=== PATIENT | male | born 1995 | race Caucasian/White ===

== ENCOUNTER 2017-03-08 08:05 | Observation (INO) | payer OTHER ==
[~2017-03-08] VITALS: Ht 177.8 cm; Wt 74.1 kg
[2017-03-08 08:11] VITALS: BP_SYST 122; BP_SYST 124; BP_DIAS 59; BP_DIAS 70; PULSE 132; RESP 16; RESP 26; TEMP 103.1; TEMP 104; O2SAT 99
[2017-03-08] MEDS ORDERED: ACETAMINOPHEN 500 MG CPLT PO ONE (08:45)
[2017-03-08] MEDS ORDERED: SODIUM CHLOR 0.9% 1000 ML INJ 1,000 ML IV ONE (08:45)
[2017-03-08 08:59] LABS: AUTOMATED NEUTROPHIL # 7.2 TH/MM3 (1.8-7.7); BASOPHIL % 0.4 % (0.0-2.0); EOSINOPHIL # 0.1 TH/MM3 (0-0.4); EOSINOPHIL % 0.9 % (0.0-4.0); HEMATOCRIT 44.7 % (39.0-51.0); HEMO FLAGS DIFF FINAL; LYMPH % 10.3 % (9.0-44.0); LYMPHOCYTE # 0.9 TH/MM3 (1.0-4.8); MEAN CELL VOLUME 88.6 FL (80.0-100.0); MEAN CORPUSCULAR HEMOGLOBIN 28.9 PG (27.0-34.0); MEAN CORPUSCULAR HGB CONC 32.7 % (32.0-36.0); MONO % 9.6 % (0.0-8.0); NEUT % 78.8 % (16.0-70.0); PLATELET COUNT 127 TH/MM3 (150-450); RED BLOOD COUNT 5.05 MIL/MM3 (4.50-5.90); RED CELL DISTRIBUTION WIDTH 12.5 % (11.6-17.2); WHITE BLOOD COUNT 9.1 TH/MM3 (4.0-11.0)
--- NOTE | 2017-03-08 09:15 | RADRPT ---
EXAM DATE/TIME: 03/08/2017 08:57 [place] COMPARISON: No previous studies available for comparison. INDICATIONS : Cough and short of breath. MEDICAL HISTORY : None. SURGICAL HISTORY : None. ENCOUNTER: Initial ACUITY: 3 days PAIN SCORE: 0/10 LOCATION: Bilateral chest FINDINGS: A single view of the chest demonstrates the lungs to be symmetrically aerated without evidence of mas s, infiltrate or effusion. The cardiomediastinal contours are unremarkable. Osseous structures are intact. CONCLUSION: Normal examination. Bridger Cruz Jr., MD on March 08, 2017 at 9:13 Board Certified Radiologist. This report was verified electronically.
[2017-03-08 09:29] LABS: ANION GAP 9 MEQ/L (5-15); AST (GOT) 19 U/L (15-37); BICARBONATE 25.4 MEQ/L (21.0-32.0); BLOOD UREA NITROGEN 13 MG/DL (7-18); CHLORIDE 103 MEQ/L (98-107); GLOMERULAR FILTRATION RATE 91 ML/MIN (>89); POTASSIUM 3.9 MEQ/L (3.5-5.1); SODIUM (NA) 137 MEQ/L (136-145)
[2017-03-08 09:30] LABS: ALT (GPT) 18 U/L (12-78)
[2017-03-08] MEDS ORDERED: SODIUM CHLOR 0.9% 1000 ML INJ 1,000 ML IV SCH (09:30)
[2017-03-08] MEDS ORDERED: KETOROLAC TROMETHAMINE 30 MG/ML (IVP) VIAL IV PUSH ONE (09:30)
[2017-03-08 09:33] LABS: ALKALINE PHOSPHATASE 74 U/L (45-117); TOTAL BILIRUBIN ADULT 0.8 MG/DL (0.2-1.0)
--- NOTE | 2017-03-08 09:38 | PD ---
HPI Chief Complaint: Fever Time Seen by Provider: 08:24 Travel History International Travel<30 days: Yes ([place] 03/02/17 ) Contact w/Intl Traveler<30days: Yes Name of Country Traveled to: [place] Traveled to known affect area: No (UNKNOWN) History of Present Illness HPI This is a 21-year-old male who presents to the emergency department having recently traveled from [facility] on the , and having been in [place] prior who says that 2 weeks ago he developed some sore throat. He seemed to be getting better but then several days ago started to develop a cough productive of yellow sputum and fevers and chills, constant, moderate severity. He denies any nausea, vomiting or diarrhea. He has had some nasal congestion. He is otherwise healthy. [facility] Past Medical History Diminished Hearing: No Medical other: Yes (G6PD DEFICIENCY) Tetanus Vaccination: > 5 Years Influenza Vaccination: No Past Surgical History Surgical History: No Previous Surgery Social History Alcohol Use: No (PT DENIES ) Tobacco Use: No (PT DENIES ) Substance Use: No (PT DENIES) Allergies-Medications (Allergen,Severity, Reaction): Coded Allergies: No Known Allergies (Unverified , 03/08/17) Reported Meds & Prescriptions Reported Meds & Active Scripts Active No Active Prescriptions or Reported Medications Review of Systems Except as stated in HPI: all other systems reviewed are Neg Physical Exam Narrative GENERAL:Well appearing, no acute distress SKIN: Focused skin assessment warm and dry. HEAD: Atraumatic. Normocephalic. EYES: Pupils equal and round. No injection or drainage. ENT: Posterior pharyngeal erythema with no exudates. NECK: Trachea midline. CARDIOVASCULAR: Regular rate and rhythm. No murmur appreciated. RESPIRATORY: Clear to auscultation. Breath sounds equal bilaterally. GASTROINTESTINAL: Abdomen soft, non-tender, nondistended. MUSCULOSKELETAL: No obvious deformities. NEUROLOGICAL: Awake and alert. No obvious cranial nerve deficits. Moving all extremities. PSYCHIATRIC: Appropriate mood and affect; insight and judgment normal. Data Data Last Documented VS Vital Signs Date Time Temp Pulse Resp B/P (MAP) Pulse Ox O2 Delivery O2 Flow Rate FiO2 03/08/17 09:42 100.1 110 18 123/60 (81) 95 Room Air Orders Orders Electrocardiogram (03/08/17 ) Complete Blood Count With Diff (03/08/17 08:33) Comprehensive Metabolic Panel (03/08/17 08:33) ^ Insert Iv (03/08/17 08:33) Influenzae A/B Antigen (03/08/17 08:33) Group A Rapid Strep Screen (03/08/17 08:33) Monoscreen (03/08/17 08:33) Sodium Chlor 0.9% 1000 Ml Inj (Ns 1000 M (03/08/17 08:45) Acetaminophen (Tylenol) (03/08/17 08:45) Chest, Single Ap (03/08/17 ) Strep Culture (Group A) (03/08/17 08:50) Ketorolac Inj (Toradol Inj) (03/08/17 09:30) Sodium Chlor 0.9% 1000 Ml Inj (Ns 1000 M (03/08/17 09:30) Sputum Culture And Gram Stain (03/08/17 09:42) Consult Infectious Disease (03/08/17 ) Blood Culture (03/08/17 09:42) Lactic Acid (03/08/17 09:42) Ceftriaxone Inj (Rocephin Inj) (03/08/17 10:00) Azithromycin (Zithromax) (03/08/17 10:00) Vital Signs (Adult) SRAVANI.Q4H (03/08/17 10:07) Activity Oob Ad Jocy (03/08/17 10:07) Intake + Output 06,14,22 (03/08/17 10:07) Notify Dr: Other (03/08/17 10:07) Resp Oxygen Ricco C Titrat 1-4 L (03/08/17 ) Sodium Chloride 0.9% Flush (Ns Flush) (03/08/17 10:15) Sodium Chloride 0.9% Flush (Ns Flush) (03/08/17 21:00) Admit Order (Ed Use Only) (03/08/17 10:07) Labs Laboratory Tests Test 03/08/17 08:40 03/08/17 09:25 White Blood Count 9.1 TH/MM3 Red Blood Count 5.05 MIL/MM3 Hemoglobin 14.6 GM/DL Hematocrit 44.7 % Mean Corpuscular Volume 88.6 FL Mean Corpuscular Hemoglobin 28.9 PG Mean Corpuscular Hemoglobin Concent 32.7 % Red Cell Distribution Width 12.5 % Platelet Count 127 TH/MM3 Mean Platelet Volume 10.7 FL Neutrophils (%) (Auto) 78.8 % Lymphocytes (%) (Auto) 10.3 % Monocytes (%) (Auto) 9.6 % Eosinophils (%) (Auto) 0.9 % Basophils (%) (Auto) 0.4 % Neutrophils # (Auto) 7.2 TH/MM3 Lymphocytes # (Auto) 0.9 TH/MM3 Monocytes # (Auto) 0.9 TH/MM3 Eosinophils # (Auto) 0.1 TH/MM3 Basophils # (Auto) 0.0 TH/MM3 CBC Comment DIFF FINAL Differential Comment Blood Urea Nitrogen 13 MG/DL Creatinine 1.03 MG/DL Random Glucose 100 MG/DL Total Protein 8.0 GM/DL Albumin 4.2 GM/DL Calcium Level 9.1 MG/DL Alkaline Phosphatase 74 U/L Aspartate Amino Transf (AST/SGOT) 19 U/L Alanine Aminotransferase (ALT/SGPT) 18 U/L Total Bilirubin 0.8 MG/DL Sodium Level 137 MEQ/L Potassium Level 3.9 MEQ/L Chloride Level 103 MEQ/L Carbon Dioxide Level 25.4 MEQ/L Anion Gap 9 MEQ/L Estimat Glomerular Filtration Rate 91 ML/MIN Monoscreen NEG Lactic Acid Level 0.8 mmol/L MDM Medical Decision Making Medical Screen Exam Complete: Yes Emergency Medical Condition: Yes Interpretation(s) Temperature 104, tachycardic, tachypneic No leukocytosis Electrolytes are reassuring Lactic acidosis 0.8 Differential Diagnosis Influenza, strep pharyngitis, mononucleosis, viral syndrome, pneumonia, MERS Narrative Course This is a 21-year-old male who presents to the emergency department with fevers , chills, and productive cough. He just recently traveled from [facility]. He was placed in a monitor and an IV was established. He has a temperature of 104 and was tachypneic and tachycardic. He is not hypoxic. Labs are reassuring. Andrews screen is negative. Chest x-rays reassuring. I spoke to Dr. Giraldo carton filler for infectious disease given the patient meets criteria for MERS screening given his recent travel from the [facility]. Pt. will be placed in observation and we will obtain appropriate screening. Physician Communication Physician Communication Discussed with Dr. Giraldo and oncall residents. Diagnosis Primary Impression: Viral syndrome Admitting Information Admitting Physician Requests: Observation Scripts No Active Prescriptions or Reported Meds Joseline Galvan MD Mar 08, 2017 09:38
[2017-03-08 09:42] VITALS: BP 123/60; PULSE 110; RESP 18; TEMP 100.1; O2SAT 95
[2017-03-08] MEDS ORDERED: AZITHROMYCIN 250 MG TAB PO ONE (10:00)
[2017-03-08] MEDS ORDERED: cefTRIAXone INJ 1,000 MG in SODIUM CHLORIDE 0.9% INJ 100 ML IV ONE (10:00)
[2017-03-08] MEDS ORDERED: SODIUM CHLORIDE 0.9% FLUSH 10 ML FLUSH IV FLUSH PRN ×2 (10:15→12:15)
[2017-03-08 10:18] VITALS: O2SAT 97
--- NOTE | 2017-03-08 10:56 | HHI.HP ---
HPI Service Family Medicine Primary Care Physician No Primary Care Physician Admission Diagnosis influenza, viral syndrome Diagnoses: International Travel<30 Days: Yes ([place] [facility] 03/02/17 ) Contact w/Intl Traveler<30days: Yes Name of Country Traveled to: [place] [facility] Known Affected Area: No (UNKNOWN) History of Present Illness Mr. Hickman is a 21 y/o M with G6PD presents to the ED with upper respiratory symptoms and subjective fevers. Patient recently traveled from the [facility] to [facility] thing to [place] and back to [facility] before returning to the [facility] on March 05. He states while traveling from [facility] to [place] he started to develop a sore throat on March 02, but it had improved before returning to [facility] on the . However when arriving to [facility] on March 05 he began to have a cough, sore throat, and subjective fevers. Over the last 3 days his symptoms have increased over time and he is started experiencing chest pain with coughing, body aches, and his cough has become productive with yellow sputum. He also endorses clear rhinorrhea over this timeframe as well. He decided to come to the emergency department when he thought that his train of thought was unclear and felt his fever was "extremely high." Otherwise he has no complaints and denies any shortness of breath, NVD, abdominal pain, or calf tenderness. (Du Dahl MD R2) Review of Systems Constitutional: COMPLAINS OF: Fever, Chills, Dizziness Eyes: DENIES: Blurred vision Ears, nose, mouth, throat: COMPLAINS OF: Throat pain, Running Nose Respiratory: COMPLAINS OF: Cough, Sputum production Cardiovascular: COMPLAINS OF: Chest pain (with coughing ) Gastrointestinal: DENIES: Abdominal pain, Diarrhea, Nausea, Vomiting Genitourinary: DENIES: Dysuria Musculoskeletal: COMPLAINS OF: Muscle aches Integumentary: DENIES: Rash Hematologic/lymphatic: DENIES: Lymphadenopathy Neurologic: COMPLAINS OF: Headache Psychiatric: DENIES: Mood changes (Du Dahl MD R2) Past Family Social History Past Medical History G6PD deficiency Past Surgical History None Reported (Du Dahl MD R2) Allergies: Coded Allergies: No Known Allergies (Unverified , 03/08/17) Family History Mother - Type of colitis Father - DM 3 brother and 6 sisters - no medical problems Social History Student at [employer] studying [employer]. Lives by himself in an apartment. Tobacco - Denies history Alcohol - Denies history Illicit - Denies history (Du Dahl MD R2) Physical Exam Vital Signs Vital Signs Date Time Temp Pulse Resp B/P (MAP) Pulse Ox O2 Delivery O2 Flow Rate FiO2 03/08/17 10:18 97 21 03/08/17 09:42 100.1 110 18 123/60 (81) 95 Room Air 03/08/17 08:19 133 17 99 Room Air 03/08/17 08:11 104.0 132 26 122/70 (87) 03/08/17 08:11 103.1 132 16 124/59 (80) 99 Physical Exam GENERAL: Well-nourished, well-developed lying in bed in no acute distress playing on the cell phone. SKIN: Warm and dry. No rash. HEENT: Atraumatic, normocephalic with EOMI. PERRLA. Oropharynx clear without erythema or exudate. No rhinorrhea. No LAD, JVD, or thyroid abnormality appreciated. CARDIOVASCULAR: Regular rate and rhythm with no MGR. 2+ pulses in all 4 extremities. RESPIRATORY: Clear to auscultation bilaterally with no CRW. No increased work of breathing. GASTROINTESTINAL: Abdomen soft, non-tender, nondistended with positive bowel sounds. No masses appreciated. MUSCULOSKELETAL: No cyanosis or edema. Strength grossly WNL. BACK: Nontender without obvious deformity. No CVA tenderness. NEURO/PSYCH: Afocal. Awake, alert, and oriented x3. Normal speech and judgment. Normal interaction with medical staff. Laboratory Laboratory Tests Test 03/08/17 08:40 03/08/17 09:25 White Blood Count 9.1 Red Blood Count 5.05 Hemoglobin 14.6 Hematocrit 44.7 Mean Corpuscular Volume 88.6 Mean Corpuscular Hemoglobin 28.9 Mean Corpuscular Hemoglobin Concent 32.7 Red Cell Distribution Width 12.5 Platelet Count 127 Mean Platelet Volume 10.7 Neutrophils (%) (Auto) 78.8 Lymphocytes (%) (Auto) 10.3 Monocytes (%) (Auto) 9.6 Eosinophils (%) (Auto) 0.9 Basophils (%) (Auto) 0.4 Neutrophils # (Auto) 7.2 Lymphocytes # (Auto) 0.9 Monocytes # (Auto) 0.9 Eosinophils # (Auto) 0.1 Basophils # (Auto) 0.0 CBC Comment DIFF FINAL Differential Comment Blood Urea Nitrogen 13 Creatinine 1.03 Random Glucose 100 Total Protein 8.0 Albumin 4.2 Calcium Level 9.1 Alkaline Phosphatase 74 Aspartate Amino Transf (AST/SGOT) 19 Alanine Aminotransferase (ALT/SGPT) 18 Total Bilirubin 0.8 Sodium Level 137 Potassium Level 3.9 Chloride Level 103 Carbon Dioxide Level 25.4 Anion Gap 9 Estimat Glomerular Filtration Rate 91 Monoscreen NEG Lactic Acid Level 0.8 Date/Time Source Procedure Growth Status 03/08/17 09:25 Blood Peripheral Aerobic Blood Culture Pending Received 03/08/17 09:25 Blood Peripheral Anaerobic Blood Culture Pending Received 03/08/17 09:15 Nasal Washing Influenza Types A,B Antigen (CORTNEY) - Final Positive For Flu A Antigen Complete (Du Dahl MD R2) Result Diagram: 03/08/17 0840 03/08/17 0840 Caprini VTE Risk Assessment Caprini VTE Risk Assessment: Mod/High Risk (score >= 2) Caprini Risk Assessment Model Point Value = 1 Point Value = 2 Point Value = 3 Point Value = 5 Age 41-60 Minor surgery BMI > 25 kg/m2 Swollen legs Varicose veins or History of unexplained or recurrent spontaneous Oral contraceptives or hormone replacement Sepsis (< 1 month) Serious lung disease, including pneumonia (< 1 month) Abnormal pulmonary function Acute myocardial infarction Congestive heart failure (< 1 month) History of inflammatory bowel disease Medical patient at bed rest Age 61-74 Arthroscopic surgery Major open surgery (> 45 min) Laparoscopic surgery (> 45 min) Malignancy Confined to bed (> 72 hours) Immobilizing plaster cast Central venous access Age >= 75 History of VTE Family history of VTE Factor V Leiden Prothrombin [id number] Lupus anticoagulant Anticardiolipin antibodies Elevated serum homocysteine Heparin-induced thrombocytopenia Other congenital or acquired thrombophilia Stroke (< 1 month) Elective arthroplasty Hip, pelvis, or leg fracture Acute spinal cord injury (< 1 month) Prophylaxis Regimen Total Risk Factor Score Risk Level Prophylaxis Regimen 0-1 Low Early ambulation 2 Moderate Order ONE of the following: *Sequential Compression Device (SCD) *Heparin 5000 units SQ BID 3-4 Higher Order ONE of the following medications: *Heparin 5000 units SQ TID *Enoxaparin/Lovenox 40 mg SQ daily (WT < 150 kg, CrCl > 30 mL/min) *Enoxaparin/Lovenox 30 mg SQ daily (WT < 150 kg, CrCl > 10-29 mL/min) *Enoxaparin/Lovenox 30 mg SQ BID (WT < 150 kg, CrCl > 30 mL/min) AND/OR *Sequential Compression Device (SCD) 5 or more Highest Order ONE of the following medications: *Heparin 5000 units SQ TID (Preferred with Epidurals) *Enoxaparin/Lovenox 40 mg SQ daily (WT < 150 kg, CrCl > 30 mL/min) *Enoxaparin/Lovenox 30 mg SQ daily (WT < 150 kg, CrCl > 10-29 mL/min) *Enoxaparin/Lovenox 30 mg SQ BID (WT < 150 kg, CrCl > 30 mL/min) AND *Sequential Compression Device (SCD) (Du Dahl MD R2) Assessment and Plan Assessment and Plan Mr. Hickman is a 21 y/o M with G6PD presents to the ED with upper respiratory symptoms and subjective fevers likely due to viral illness. Code Status Full Code Discussed Condition With Dr. Galvan, ER physician Dr. Godinez (Du Dahl MD R2) Attending Attestation Patient seen and examined. Case reviewed and discussed with the resident team. Agree with plan of care as discussed with me and documented in the resident note. evaluated in the ED. acutely ill but feels better with his headache. spoke to ANDREW Patel and he should be able to continue his recovery at home (Wendy Meek MD) Problem List: (1) Viral syndrome ICD Codes: B34.9 - Viral infection, unspecified Status: Acute Plan: Patient presenting with fevers, chills, productive cough, and sore throat consistent with likely viral syndrome. Patient does have positive history of foreign travel within the last week. ER staff concerned for possible MERS virus and infectious disease was consulted who recommended admission for observation and further appropriate screening. -Chest x-ray: Normal examination -CBC: WBC 9.1 with 78.8% neutrophils -Lactic acid: 0.8 -Blood cultures 2: Pending -Rapid strep: Negative -Monoscreen: Negative -Influenza: Positive for flu type A antigen -[facility] disease consulted, appreciate recommendations Medications: -Patient received ceftriaxone, azithromycin, and Toradol in ER -Normal saline at 114 mL/h -Tamiflu 75 mg twice a day for 5 days -Tylenol when necessary for fever (2) G6PD deficiency ICD Codes: D55.0 - Anemia due to [id number] dehydrogenase [G6PD] deficiency Plan: Patient with history of G6PD deficiency -Regular diet with avoiding carl beans and lagoons -Avoid medications with menthol (3) Nutrition, metabolism, and development symptoms ICD Codes: R63.8 - Other symptoms and signs concerning food and fluid intake Plan: Diet: Regular as tolerated Electrolytes: Within normal limits, continue to monitor Fluids: Normal saline at 140 mL/h Prophylaxis: DuoNeb's when necessary for shortness of breath, hydroxyzine when necessary for insomnia, loperamide when necessary for diarrhea, Bambi-Colace when necessary for constipation, Tylenol when necessary for fever, Zofran when necessary for nausea or vomiting (4) No contraindication to deep vein thrombosis (DVT) prophylaxis ICD Codes: Z78.9 - Other specified health status Plan: Heparin 5000 units every 8 hours TONNY/SCDs (Du Dahl MD R2) Physician Certification 2 Midnight Certification Type: Admission for Inpatient Services Order for Inpatient Services The services are ordered in accordance with Medicare regulations or non- Medicare payer requirements, as applicable. In the case of services not specified as inpatient-only, they are appropriately provided as inpatient services in accordance with the 2-midnight benchmark. Estimated LOS (days): 3 3 days is the estimated time the patient will need to remain in the hospital, assuming treatment plan goals are met and no additional complications. Post-Hospital Plan: Home (Du Dahl MD R2) Du Dahl MD R2 Mar 08, 2017 10:56 Wendy Meek MD Mar 09, 2017 13:03
[2017-03-08] MEDS ORDERED: ONDANSETRON HCL 4 MG/2 ML VIAL IVP PRN (12:15)
[2017-03-08] MEDS ORDERED: DOCUSATE SODIUM 50 MG/SENNA 8.6 MG TAB PO PRN (12:15)
[2017-03-08] MEDS ORDERED: NALOXONE HCL 0.4 MG/ML AMP IV PRN (12:15)
[2017-03-08 12:39] VITALS: BP 117/59; PULSE 102; RESP 22; TEMP 99.4; O2SAT 98
[2017-03-08] MEDS: OSELTAMIVIR PHOSPHATE 75 MG CAP PO SCH (12:59)
[2017-03-08] MEDS: SODIUM CHLOR 0.9% 1000 ML INJ 1,000 ML IV SCH (12:59)
[2017-03-08] MEDS: HEPARIN SODIUM - SQ 10,000 UNITS/ML VIAL SQ SCH ×2 (12:59→19:58)
[2017-03-08] MEDS: ACETAMINOPHEN 325 MG TAB PO PRN (14:43)
[2017-03-08 15:23] VITALS: BP 120/58; PULSE 97; RESP 16; TEMP 100.2; O2SAT 100
[2017-03-08] MEDS ORDERED: RESP: ALBUTEROL 2.5 MG/IPRATROPIUM 0.5 MG NEB (PRN) NEB (16:15)
[2017-03-08] MEDS ORDERED: LOPERAMIDE HCL 2 MG CAP PO PRN (16:15)
--- NOTE | 2017-03-08 16:22 | MB ---
cc: KIERRA MCGHEE MD DATE OF CONSULTATION: 03/08/[address] Akins. REASON FOR CONSULTATION Possible MERS virus infection. HISTORY OF PRESENT ILLNESS This is a 21-year-old white male who is a student at [employer]. The patient presented to the emergency department this morning with cough, high fever and sore throat. The patient just returned to begin the new semester at college three days ago. He arrived in the [facility] from [facility] on March 04 and prior to that he was in [place] for 2 weeks. The patient notes that his sister in [place] had "flu". He visited his grandfather and uncle in [facility] for two days prior to leaving for the [facility]. After he arrived in the [facility] he continued to have cough and he was having some shakes and high fever. He notes that he had occasional productive yellow sputum upon coughing. He also noted developing a headache yesterday. He states that he currently has a headache with a pain level of 8/10 currently. He has no nasal drainage and denies nausea or vomiting. He also denies joints and muscle aches and pains, although he does note that he had some pain behind the knees and also in the left hip. The patient states that he was coughing while he was in class yesterday at the [employer]. He denies being in any crowded environment in [facility]. Influenza testing is positive from a nasal washing. The test is positive for influenza A. Streptococcal throat screen is negative. White blood cell count is normal. The patient had temperature of 104 degrees earlier today. The patient was just evaluated by physical therapy and he was able to stand up and do some movements including standing on one leg without any balance problems. He told me that yesterday he was having a little wobbly movement when he would walk upon awakening. He has had no dysuria or back pain or neck stiffness. PAST MEDICAL HISTORY Negative except for G6PD deficiency. ALLERGIES NO KNOWN DRUG ALLERGIES. MEDICATIONS 1. Tamiflu which was just started this afternoon. Prior antibiotics included: 1. Ceftriaxone given early today. 2. Zithromax given early today. These have been discontinued. SOCIAL HISTORY No tobacco, no alcohol, no illicit drugs. The patient is a student at [employer]. FAMILY HISTORY Family history significant for colitis in his mom and diabetes mellitus in his father. REVIEW OF SYSTEMS CONSTITUTIONAL: The patient with fever and chills. HEENT: Significant for headache. No visual blurring or difficulty with vision. No nasal discharge. No soreness of the throat or difficulty swallowing. CARDIOVASCULAR: No palpitations or chest pain. RESPIRATORY: Positive for cough. Denies shortness of breath. GASTROINTESTINAL: Denies nausea or vomiting, abdominal pain or diarrhea. GENITOURINARY: Denies urgency, frequency or dysuria. HEMATOPOIETIC: Denies easy bruising or bleeding. MUSCULOSKELETAL: Admits to mild pain in the left hip and behind the left and right knees. INTEGUMENTARY: Denies skin rash or itching. NEUROLOGIC: Significant for unsteady gait. PSYCHIATRIC: Denies depression or mood changes. PHYSICAL EXAMINATION GENERAL: This is a pleasant, well-developed male who is in no acute distress. He is awake and alert and oriented. VITAL SIGNS: Include temperature 99.4, BP 117/59, respirations 22, heart rate 101. HEENT: Head is atraumatic. Extraocular movements grossly intact, pupils reactive to light. No icterus. No conjunctival erythema. Oropharynx moist mucosa without lesions. NECK: Supple without adenopathy. LUNGS: Clear breath sounds with slight rhonchi at the bases. HEART: Regular, S1 and S2 without murmurs, rubs or gallops. ABDOMEN: Bowel sounds present, soft, nontender. No hepatosplenomegaly. RECTAL: Not performed. EXTREMITIES: No clubbing or cyanosis or edema. SKIN: No rash. NEURO: No gross focal findings. PSYCHIATRIC: The patient is calm and cooperative. LABORATORY DATA WBC 9.1, platelet count 127, hemoglobin 14.6, 78% neutrophils, creatinine 1.03, BUN 13, sodium 137, AST 19, ALT 18. IMPRESSION Infection due to influenza A. The patient with symptoms including headache, fever, chills related to influenza. RECOMMENDATIONS 1. Continue the Tamiflu for 5 days duration. 2. I suggest that he be monitored overnight because of the headache and if the headache improves, we can discharge him tomorrow. Of critical importance is that we make sure that he is made aware that he needs to wear a mask for the next 7 days since he is liable to be shedding virus over that period of time. He needs to wear a N95 mask or be quarantined to his apartment. He does have an apartment where he lives by himself. I have informed him that he should contact his professors to try to get his schoolwork delivered to him by computer or give it to him in somewhat a way so that he does not attend class during the 7 days. I do not think that further workup of the headache is warranted at this time but it can be observed and if it worsens we may have to keep him in the hospital for a longer period of time. Thank you for this consultation. The patient's progress will be monitored along with you and further recommendations will be given upon followup if necessary. Kierra Mcghee MD FD/JEREMI /2:37 PM /3:39 PM
[2017-03-08 19:26] VITALS: BP 127/73; PULSE 72; RESP 18; TEMP 99.6; O2SAT 97
[2017-03-08] MEDS ORDERED: SODIUM CHLORIDE 0.9% FLUSH 10 ML FLUSH IV FLUSH SCH ×2 (21:00)
[2017-03-09] MEDS: SODIUM CHLOR 0.9% 1000 ML INJ 1,000 ML IV SCH ×3 (00:20→08:51)
[2017-03-09] MEDS: OSELTAMIVIR PHOSPHATE 75 MG CAP PO SCH (00:24)
[2017-03-09 00:28] VITALS: BP 122/65; PULSE 79; RESP 18; TEMP 99.2; O2SAT 98
[2017-03-09 01:19] VITALS: O2SAT 98
[2017-03-09 04:24] VITALS: BP 125/65; PULSE 76; RESP 18; TEMP 98.1; O2SAT 98
[2017-03-09] MEDS: HEPARIN SODIUM - SQ 10,000 UNITS/ML VIAL SQ SCH (05:00)
[2017-03-09] MEDS ORDERED: ACET1TAB86 PO (06:32)
[2017-03-09] MEDS ORDERED: OSEL75 PO ×2 (06:32→09:26)
--- NOTE | 2017-03-09 06:33 | HHI.DCPOC ---
Discharge Care Plan Diagnosis: (1) Viral syndrome Goals to Promote Your Health * To prevent worsening of your condition and complications * To maintain your health at the optimal level Directions to Meet Your Goals Take your medications as prescribed Follow your dietary instruction Follow activity as directed Keep your appointments as scheduled Take your immunizations and boosters as scheduled If your symptoms worsen call your PCP, if no PCP go to Urgent Care Center or Emergency Room Smoking is Dangerous to Your Health. Avoid second hand smoke Call the 24-hour hour crisis hotline for domestic abuse at Du Dahl MD R2 Mar 09, 2017 06:33
[2017-03-09 07:49] VITALS: O2SAT 97
[2017-03-09 08:10] VITALS: BP 126/63; PULSE 93; RESP 16; TEMP 101; O2SAT 96
[2017-03-09 08:24] LABS: AUTOMATED NEUTROPHIL # 4.8 TH/MM3 (1.8-7.7); BASOPHIL % 0.5 % (0.0-2.0); HEMATOCRIT 42.4 % (39.0-51.0); HEMO FLAGS DIFF FINAL; LYMPHOCYTE # 2.4 TH/MM3 (1.0-4.8); MEAN CELL VOLUME 89.2 FL (80.0-100.0); MEAN CORPUSCULAR HEMOGLOBIN 29.1 PG (27.0-34.0); MEAN CORPUSCULAR HGB CONC 32.6 % (32.0-36.0); MONO % 11.1 % (0.0-8.0); NEUT % 58.4 % (16.0-70.0); PLATELET COUNT 107 TH/MM3 (150-450); RED BLOOD COUNT 4.76 MIL/MM3 (4.50-5.90); RED CELL DISTRIBUTION WIDTH 12.8 % (11.6-17.2); WHITE BLOOD COUNT 8.1 TH/MM3 (4.0-11.0)
[2017-03-09 08:50] LABS: ANION GAP 12 MEQ/L (5-15); AST (GOT) 28 U/L (15-37); BICARBONATE 21.8 MEQ/L (21.0-32.0); BLOOD UREA NITROGEN 10 MG/DL (7-18); CHLORIDE 103 MEQ/L (98-107); GLOMERULAR FILTRATION RATE 89 ML/MIN (>89); POTASSIUM 3.7 MEQ/L (3.5-5.1); SODIUM (NA) 137 MEQ/L (136-145)
[2017-03-09] MEDS: ACETAMINOPHEN 325 MG TAB PO PRN (08:50)
[2017-03-09 08:51] LABS: ALT (GPT) 19 U/L (12-78)
[2017-03-09 08:54] LABS: ALKALINE PHOSPHATASE 61 U/L (45-117)
--- NOTE | 2017-03-09 09:25 | HHI.HP ---
[facility] Service Family Medicine Primary Care Physician No Primary Care Physician Admission Diagnosis influenza, viral syndrome Diagnoses: (1) Influenza A Diagnosis: Principal (2) Viral syndrome Diagnosis: Principal (3) G6PD deficiency Diagnosis: Principal (4) Nutrition, metabolism, and development symptoms Diagnosis: Principal (5) No contraindication to deep vein thrombosis (DVT) prophylaxis Diagnosis: Principal International Travel<30 Days: Yes ([facility]) Contact w/Intl Traveler<30days: Yes Name of Country Traveled to: [facility] Known Affected Area: Yes History of Present Illness Mr. Hickman is a 21 y/o M with G6PD who presented to the ED with upper respiratory symptoms and subjective fevers. Patient recently traveled from the [facility] to [facility] and to [place] and back to [facility] before returning to the [facility] on March 05. He states while traveling from [facility] to [place] he started to develop a sore throat on March 02, but it had improved before returning to [facility] on the . However when arriving to [facility] on March 05 he began to have a cough, sore throat, and subjective fevers. Over the last 3 days his symptoms have increased over time and he is started experiencing chest pain with coughing, body aches, and his cough has become productive with yellow sputum. He also endorses clear rhinorrhea over this timeframe as well. He decided to come to the emergency department when he believed that his train of thought was unclear and felt his fever was " extremely high." Otherwise he has no complaints and denies any shortness of breath, NVD, abdominal pain, or calf tenderness. He had a fever of 104 at it's highest. he was admitted with a possibility of MERS [place] and had respiratory sxs however, he has influenza a. he is still symptomatic but feels better than yesterday. Per ID, he needs to remain on isolation for 7 days. he was given a note for his Professors as he is at [employer] and one professor expected him to start back to school right away and evidently did not think the flu was a valid excuse so he was given a note stating he needed isolation. He had a headache and other sxs yesterday but is improved overall today. Review of Systems Other Constitutional: COMPLAINS OF: Fever, Chills, Dizziness Eyes: DENIES: Blurred vision Ears, nose, mouth, throat: COMPLAINS OF: Throat pain, Running Nose Respiratory: COMPLAINS OF: Cough, Sputum production Cardiovascular: COMPLAINS OF: Chest pain (with coughing ) Gastrointestinal: DENIES: Abdominal pain, Diarrhea, Nausea, Vomiting Genitourinary: DENIES: Dysuria Musculoskeletal: COMPLAINS OF: Muscle aches Integumentary: DENIES: Rash Hematologic/lymphatic: DENIES: Lymphadenopathy Neurologic: COMPLAINS OF: Headache Psychiatric: DENIES: Mood changes Past Family Social History Past Medical History G6PD deficiency Past Surgical History None Reported Allergies: Coded Allergies: No Known Allergies (Unverified , 03/08/17) Family History Mother - Type of colitis Father - DM 3 brother and 6 sisters - no medical problems Social History 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 Lives by himself in an apartment. Tobacco - Denies history Alcohol - Denies history Illicit - Denies history Physical Exam Vital Signs Vital Signs Date Time Temp Pulse Resp B/P (MAP) Pulse Ox O2 Delivery O2 Flow Rate FiO2 03/09/17 08:10 101.0 93 16 126/63 (84) 96 03/09/17 07:49 97 21 03/09/17 04:24 98.1 76 18 125/65 (85) 98 03/09/17 01:19 98 21 03/09/17 00:28 99.2 79 18 122/65 (84) 98 03/08/17 19:26 99.6 72 18 127/73 (91) 97 03/08/17 15:43 20 03/08/17 15:23 100.2 97 16 120/58 (78) 100 03/08/17 12:39 99.4 102 22 117/59 (78) 98 03/08/17 11:01 03/08/17 10:18 97 21 03/08/17 09:42 100.1 110 18 123/60 (81) 95 Room Air Physical Exam GENERAL: Well-nourished, well-developed lying in bed in no acute distress playing on the cell phone. appears acutely ill but in very good general health SKIN: Warm and dry. No rash. HEENT: Atraumatic, normocephalic with EOMI. PERRLA. Oropharynx clear without erythema or exudate. No rhinorrhea. No LAD, JVD, or thyroid abnormality appreciated. CARDIOVASCULAR: Regular rate and rhythm with no MGR. 2+ pulses in all 4 extremities. RESPIRATORY: Clear to auscultation bilaterally with no CRW. No increased work of breathing. GASTROINTESTINAL: Abdomen soft, non-tender, nondistended with positive bowel sounds. No masses appreciated. MUSCULOSKELETAL: No cyanosis or edema. Strength grossly WNL. BACK: Nontender without obvious deformity. No CVA tenderness. NEURO/PSYCH: Afocal. Awake, alert, and oriented x3. Normal speech and judgment. Normal interaction with medical staff. Laboratory Laboratory Tests Test 03/09/17 06:21 White Blood Count 8.1 Red Blood Count 4.76 Hemoglobin 13.8 Hematocrit 42.4 Mean Corpuscular Volume 89.2 Mean Corpuscular Hemoglobin 29.1 Mean Corpuscular Hemoglobin Concent 32.6 Red Cell Distribution Width 12.8 Platelet Count 107 Mean Platelet Volume 12.2 Neutrophils (%) (Auto) 58.4 Lymphocytes (%) (Auto) 30.0 Monocytes (%) (Auto) 11.1 Eosinophils (%) (Auto) 0.0 Basophils (%) (Auto) 0.5 Neutrophils # (Auto) 4.8 Lymphocytes # (Auto) 2.4 Monocytes # (Auto) 0.9 Eosinophils # (Auto) 0.0 Basophils # (Auto) 0.0 CBC Comment DIFF FINAL Differential Comment Blood Urea Nitrogen 10 Creatinine 1.05 Random Glucose 90 Total Protein 7.1 Albumin 3.7 Calcium Level 8.7 Alkaline Phosphatase 61 Aspartate Amino Transf (AST/SGOT) 28 Alanine Aminotransferase (ALT/SGPT) 19 Total Bilirubin 1.0 Sodium Level 137 Potassium Level 3.7 Chloride Level 103 Carbon Dioxide Level 21.8 Anion Gap 12 Estimat Glomerular Filtration Rate 89 Date/Time Source Procedure Growth Status 03/08/17 09:25 Blood Peripheral Aerobic Blood Culture Pending Received 03/08/17 09:25 Blood Peripheral Anaerobic Blood Culture Pending Received 03/08/17 09:15 Nasal Washing Influenza Types A,B Antigen (CORTNEY) - Final Positive For Flu A Antigen Complete Result Diagram: 03/09/1762003/09/17620 Septic Shock Reassessment Heart: Regular rate and rhythm Lungs: Clear Skin: Warm, Dry Capillary Refill: Brisk Caprini VTE Risk Assessment Caprini VTE Risk Assessment: Mod/High Risk (score >= 2) Caprini Risk Assessment Model Point Value = 1 Point Value = 2 Point Value = 3 Point Value = 5 Age 41-60 Minor surgery BMI > 25 kg/m2 Swollen legs Varicose veins or History of unexplained or recurrent spontaneous Oral contraceptives or hormone replacement Sepsis (< 1 month) Serious lung disease, including pneumonia (< 1 month) Abnormal pulmonary function Acute myocardial infarction Congestive heart failure (< 1 month) History of inflammatory bowel disease Medical patient at bed rest Age 61-74 Arthroscopic surgery Major open surgery (> 45 min) Laparoscopic surgery (> 45 min) Malignancy Confined to bed (> 72 hours) Immobilizing plaster cast Central venous access Age >= 75 History of VTE Family history of VTE Factor V Leiden Prothrombin [id number] Lupus anticoagulant Anticardiolipin antibodies Elevated serum homocysteine Heparin-induced thrombocytopenia Other congenital or acquired thrombophilia Stroke (< 1 month) Elective arthroplasty Hip, pelvis, or leg fracture Acute spinal cord injury (< 1 month) Prophylaxis Regimen Total Risk Factor Score Risk Level Prophylaxis Regimen 0-1 Low Early ambulation 2 Moderate Order ONE of the following: *Sequential Compression Device (SCD) *Heparin 5000 units SQ BID 3-4 Higher Order ONE of the following medications: *Heparin 5000 units SQ TID *Enoxaparin/Lovenox 40 mg SQ daily (WT < 150 kg, CrCl > 30 mL/min) *Enoxaparin/Lovenox 30 mg SQ daily (WT < 150 kg, CrCl > 10-29 mL/min) *Enoxaparin/Lovenox 30 mg SQ BID (WT < 150 kg, CrCl > 30 mL/min) AND/OR *Sequential Compression Device (SCD) 5 or more Highest Order ONE of the following medications: *Heparin 5000 units SQ TID (Preferred with Epidurals) *Enoxaparin/Lovenox 40 mg SQ daily (WT < 150 kg, CrCl > 30 mL/min) *Enoxaparin/Lovenox 30 mg SQ daily (WT < 150 kg, CrCl > 10-29 mL/min) *Enoxaparin/Lovenox 30 mg SQ BID (WT < 150 kg, CrCl > 30 mL/min) AND *Sequential Compression Device (SCD) Assessment and Plan Assessment and Plan Mr. Hickman is a 21 y/o M with G6PD presenting to the ED with upper respiratory symptoms and subjective fevers likely due to viral illness. was found to have the flu. this is out of sync with our regular flu season in [place] so he needs to be on isolation as he could infect others and out flu shots have not been given yet Problem List: (1) Influenza A ICD Codes: J10.1 - Influenza due to other identified influenza virus with other respiratory manifestations Status: Acute Plan: Patient presenting with fevers, chills, productive cough, and sore throat consistent with likely flu. Patient does have positive history of foreign travel within the last week. ER staff concerned for possible MERS virus and infectious disease was consulted who recommended admission for observation and further appropriate screening overnight but is fine with D/C today as he is better and will continue with his tamiflu. -Chest x-ray: Normal examination -CBC: WBC 9.1 with 78.8% neutrophils -Lactic acid: 0.8 -Blood cultures 2: Pending -Rapid strep: Negative -Monoscreen: Negative -Influenza: Positive for flu type A antigen -[facility] disease consulted, appreciate recommendations Medications: -Patient received ceftriaxone, azithromycin, and Toradol in ER -Normal saline at 114 mL/h -Tamiflu 75 mg twice a day for 5 days -Tylenol when necessary for fever with the flu abx are not needed (2) G6PD deficiency ICD Codes: D55.0 - Anemia due to ubaqqaj-[id number] dehydrogenase [G6PD] deficiency Plan: Patient with history of G6PD deficiency -Regular diet with avoiding carl beans and legumes -Avoid medications with menthol (3) Nutrition, metabolism, and development symptoms ICD Codes: R63.8 - Other symptoms and signs concerning food and fluid intake Plan: Diet: Regular as tolerated Electrolytes: Within normal limits, continue to monitor Fluids: Normal saline at 140 mL/h overnight Prophylaxis: DuoNeb's when necessary for shortness of breath, hydroxyzine when necessary for insomnia, loperamide when necessary for diarrhea, Bambi-Colace when necessary for constipation, Tylenol when necessary for fever, Zofran when necessary for nausea or vomiting (4) No contraindication to deep vein thrombosis (DVT) prophylaxis ICD Codes: Z78.9 - Other specified health status Plan: Heparin 5000 units every 8 hours TONNY/SCDs Physician Certification 2 Midnight Certification Type: Admission for Inpatient Services Order for Inpatient Services The services are ordered in accordance with Medicare regulations or non- Medicare payer requirements, as applicable. In the case of services not specified as inpatient-only, they are appropriately provided as inpatient services in accordance with the 2-midnight benchmark. Estimated LOS (days): 3 3 days is the estimated time the patient will need to remain in the hospital, assuming treatment plan goals are met and no additional complications. Post-Hospital Plan: Home Notes: he is stable and in good general health so he can go home per ID despite having some fevers as that is normal for days with the flu. He lives alone but will have friends bring him food and look in on him Wendy Meek MD Mar 09, 2017 09:25
[2017-03-09 11:17] VITALS: BP 116/59; PULSE 55; RESP 16; TEMP 98.4; O2SAT 99
== END 2017-03-09 14:44 | disposition home or self-care (01) ==
LOC: NEPC 08:05 → NEDA 10:10 → INTOOBSV 10:51 → OBSVTOIN 10:51 → NEPHCDU 11:06
PROVIDERS: ADMIT Family Medicine; ATTEND Family Medicine
DX: J10.1 Influenza due to other identified influenza virus with other respiratory manifestations (principal); D55.0 Anemia due to glucose-6-phosphate dehydrogenase [G6PD] deficiency; R63.8 Other symptoms and signs concerning food and fluid intake; R00.0 Tachycardia, unspecified; G47.00 Insomnia, unspecified; Z78.9 Other specified health status
CPT/HCPCS: 71010; 80053; 83605; 85025; 86308; 87040; 87081; 87804; 87880; 94150; 96361; 96372; 96374; 97161; 99285; G0378; J0696; J1644; J1885; J7030

== ENCOUNTER 2017-12-11 15:14 | Emergency (ER) | payer OTHER ==
[~2017-12-11] VITALS: Ht 177.8 cm; Wt 70.0 kg
[~2017-12-11 15:14] MED LIST: ACET325T15 PO; OSEL75 PO
[2017-12-11 15:57] VITALS: BP 149/66; PULSE 77; RESP 18; TEMP 98.4; O2SAT 98
--- NOTE | 2017-12-11 17:26 | PD ---
HPI Chief Complaint: Abdominal Pain Time Seen by Provider: 17:06 Travel History International Travel<30 days: No Contact w/Intl Traveler<30days: No Traveled to known affect area: No History of Present Illness HPI 22yo M with no PMH presents to the ED with c/o abdominal pressure intermittently for 2 months. Said it changes in location. Feel that there is a mass in his mid epigastric area. Said he had fever yesterday but temp was 99F so did not have fever. Denies any nausea, vomiting, chest pain, sob, diarrhea, dysuria, hematuria, testicular pain. PFSH Past Medical History Blood Disorders: No Cancer: No Cardiovascular Problems: No Diabetes: No Diminished Hearing: No Endocrine: No Genitourinary: No Immune Disorder: No Musculoskeletal: Yes (back pain) Neurologic: No Psychiatric: No Reproductive: No Respiratory: No Social History Alcohol Use: No (PT DENIES ) Tobacco Use: No (PT DENIES ) Substance Use: No (PT DENIES) Allergies-Medications (Allergen,Severity, Reaction): Coded Allergies: No Known Allergies (Unverified Adverse Reaction, Unknown, 12/11/17) Reported Meds & Prescriptions Reported Meds & Active Scripts Active No Active Prescriptions or Reported Medications Review of Systems Except as stated in HPI: all other systems reviewed are Neg Physical Exam Narrative GENERAL: 22yo M not in distress. SKIN: Focused skin assessment warm/dry. HEAD: Atraumatic. Normocephalic. EYES: Pupils equal and round. No scleral icterus. No injection or drainage. ENT: No nasal bleeding or discharge. Mucous membranes pink and moist. NECK: Trachea midline. No JVD. CARDIOVASCULAR: Regular rate and rhythm. No murmur appreciated. RESPIRATORY: No accessory muscle use. Clear to auscultation. Breath sounds equal bilaterally. GASTROINTESTINAL: Abdomen soft, +BS. Nontender to palpation. Retraction of upper abdomen upon standing. Feel that pt is voluntarily doing it. MUSCULOSKELETAL: No obvious deformities. No clubbing. No cyanosis. No edema. NEUROLOGICAL: Awake and alert. No obvious cranial nerve deficits. Motor grossly within normal limits. Normal speech. PSYCHIATRIC: Appropriate mood and affect; insight and judgment normal. Data Data Last Documented VS Vital Signs Date Time Temp Pulse Resp B/P (MAP) Pulse Ox O2 Delivery O2 Flow Rate FiO2 12/11/17 15:57 98.4 77 18 149/66 (93) 98 Orders Orders Complete Blood Count With Diff (12/11/17 17:22) Comprehensive Metabolic Panel (12/11/17 17:22) Lipase (12/11/17 17:26) Ct Abd/Pel W/O Iv Contrast (12/11/17 ) Ed Discharge Order (12/11/17 20:21) Labs Laboratory Tests Test 12/11/17 17:53 12/11/17 19:03 Blood Urea Nitrogen 8 MG/DL Creatinine 1.05 MG/DL Random Glucose 85 MG/DL Total Protein 7.7 GM/DL Albumin 4.0 GM/DL Calcium Level 9.1 MG/DL Alkaline Phosphatase 70 U/L Aspartate Amino Transf (AST/SGOT) 43 U/L Alanine Aminotransferase (ALT/SGPT) 26 U/L Total Bilirubin 1.0 MG/DL Sodium Level 138 MEQ/L Potassium Level 5.2 MEQ/L Chloride Level 105 MEQ/L Carbon Dioxide Level 26.0 MEQ/L Anion Gap 7 MEQ/L Estimat Glomerular Filtration Rate 88 ML/MIN White Blood Count 7.8 TH/MM3 Red Blood Count 5.00 MIL/MM3 Hemoglobin 14.7 GM/DL Hematocrit 44.0 % Mean Corpuscular Volume 88.0 FL Mean Corpuscular Hemoglobin 29.5 PG Mean Corpuscular Hemoglobin Concent 33.5 % Red Cell Distribution Width 12.3 % Platelet Count 133 TH/MM3 Mean Platelet Volume 11.1 FL Neutrophils (%) (Auto) 70.3 % Lymphocytes (%) (Auto) 16.5 % Monocytes (%) (Auto) 10.6 % Eosinophils (%) (Auto) 2.3 % Basophils (%) (Auto) 0.3 % Neutrophils # (Auto) 5.5 TH/MM3 Lymphocytes # (Auto) 1.3 TH/MM3 Monocytes # (Auto) 0.8 TH/MM3 Eosinophils # (Auto) 0.2 TH/MM3 Basophils # (Auto) 0.0 TH/MM3 CBC Comment DIFF FINAL Differential Comment MDM Medical Decision Making Medical Screen Exam Complete: Yes Emergency Medical Condition: Yes Differential Diagnosis Anxiety vs. gastritis peptic ulcer disease vs. abdominal mass Narrative Course 22yo M with multiple vague abdominal complaints. Pt said this is not normal for him and feels a mass in his abdomen. I do not feel any mass on exam. Labs reviewed, no leukocytosis. H/H normal. Mild thrombocytopenia which is at baseline. K 5.2. AST mildly elevated at 43. CT a/p showed no acute findings on CT a/p. Instructed pt to follow up with GI if needed. Diagnosis Primary Impression: Abdominal pain Qualified Codes: R10.9 - Unspecified abdominal pain Referrals: Angelo Barrett MD as needed Patient Instructions: General Instructions Departure Forms: Tests/Procedures Additional Instructions: Please follow up with [facility] helicopter pilot as needed. Return to the ED if symptoms worsen. Med/Other Pt SpecificInfo: No Change to Meds Scripts No Active Prescriptions or Reported Meds Disposition: 01 DISCHARGE HOME Condition: Stable Raquel Armasanam DOBBINS Dec 11, 2017 17:26
[2017-12-11 18:50] LABS: ALKALINE PHOSPHATASE 70 U/L (45-117); ALT (GPT) 26 U/L (12-78); AST (GOT) 43 U/L (15-37); BLOOD UREA NITROGEN 8 MG/DL (7-18); CALCIUM 9.1 MG/DL (8.5-10.1); CHLORIDE 105 MEQ/L (98-107); CREATININE 1.05 MG/DL (0.60-1.30); GLOMERULAR FILTRATION RATE 88 ML/MIN (>89); GLUCOSE,RANDOM 85 MG/DL (74-106); SODIUM (NA) 138 MEQ/L (136-145); TOTAL PROTEIN 7.7 GM/DL (6.4-8.2)
[2017-12-11 19:33] LABS: AUTOMATED NEUTROPHIL # 5.5 TH/MM3 (1.8-7.7); BASOPHIL % 0.3 % (0.0-2.0); EOSINOPHIL # 0.2 TH/MM3 (0-0.4); EOSINOPHIL % 2.3 % (0.0-4.0); HEMOGLOBIN 14.7 GM/DL (13.0-17.0); LYMPH % 16.5 % (9.0-44.0); LYMPHOCYTE # 1.3 TH/MM3 (1.0-4.8); MEAN CORPUSCULAR HEMOGLOBIN 29.5 PG (27.0-34.0); MEAN CORPUSCULAR HGB CONC 33.5 % (32.0-36.0); MEAN PLATELET VOLUME 11.1 FL (7.0-11.0); MONO % 10.6 % (0.0-8.0); MONOCYTE # 0.8 TH/MM3 (0-0.9); NEUT % 70.3 % (16.0-70.0); PLATELET COUNT 133 TH/MM3 (150-450); RED CELL DISTRIBUTION WIDTH 12.3 % (11.6-17.2); WHITE BLOOD COUNT 7.8 TH/MM3 (4.0-11.0)
--- NOTE | 2017-12-11 19:46 | RADRPT ---
EXAM DATE: 12/11/2017 7:19 PM EDT AGE/SEX: 22 years / Male INDICATIONS: Abdomen pain on and off past 2 months. CLINICAL DATA: This is the patient's initial encounter. Patient reports that signs and symptoms have been present for 2 months and indicates a pain score of 4/10. MEDICAL/SURGICAL HISTORY: . . RADIATION DOSE: 9.78 CTDI (mGy) COMPARISON: No prior [place] exams available for comparison. TECHNIQUE: Multiple contiguous axial images were obtained through the abdomen. Images were obtained using multiple row detector helical technique. Using dose reduction techniques, radiation dose was ke pt as low as reasonably achievable to obtain optimal diagnostic quality images. FINDINGS: Lung bases are clear. No acute findings in the liver, spleen, adrenals, kidneys or pancreas. No calcified gallstones or bro iary ductal dilatation. Is no free fluid. No bowel obstruction. No adenopathy. No acute bony abnormalities identified. CONCLUSION: 1. No acute findings on noncontrast abdomen pelvic CT. Specifically no obstruction, free fluid. No h ydronephrosis or evidence for obstructive uropathy. Electronically signed by: Zaheer Carrera MD 12/11/2017 7:45 PM EDT
== END 2017-12-11 20:28 | disposition home or self-care (01) ==
LOC: NEPD 15:14
DX: R10.9 Unspecified abdominal pain (principal)
CPT/HCPCS: 74176; 80053; 83690; 85025